=== PATIENT | male | born 1990 | race Caucasian/White ===

== ENCOUNTER 2017-12-26 16:01 | Emergency (ER) | payer MEDICAID ==
[~2017-12-26] VITALS: Ht 177.8 cm; Wt 101.7 kg
[2017-12-26 16:02] VITALS: BP 170/93
[2017-12-26] MEDS ORDERED: DIPH,PERTUSS(ACELL),TET VAC/PF 0.5 ML IM-VACC ONE ×2 (16:30→16:42)
[2017-12-26] MEDS ORDERED: PLEASE ENTER ALLERGIES MC SCH (16:30)
[2017-12-26] MEDS ORDERED: BACITRACIN ZINC OINT 500U/GM, 0.9 GM ONE ×2 (18:15→18:16)
== END 2017-12-26 18:32 | disposition home or self-care (01) ==
LOC: ED 18:25
DX: S51.812A Laceration without foreign body of left forearm, initial encounter (principal); S60.872A Other superficial bite of left wrist, initial encounter; W54.0XXA Bitten by dog, initial encounter; Y93.89 Activity, other specified; Y92.89 Other specified places as the place of occurrence of the external cause; Y99.8 Other external cause status
CPT/HCPCS: 12002; 13121; 90471; 90715